=== PATIENT | female | born 1975 | race Caucasian/White ===

== ENCOUNTER 2017-10-24 08:23 | Emergency (ER) | payer SELFPAY ==
[~2017-10-24 08:23] MED LIST: LAMI25TA3 PO; METH10TA PO; OXYC30TA PO; SULF1TAB47 PO; XANA2TAB2 PO
[2017-10-24 08:32] VITALS: BP 130/81; PULSE 87; RESP 18; TEMP 98.3; O2SAT 98
== END 2017-10-24 10:45 | disposition left against medical advice (07) ==
LOC: NED 08:23
DX: N93.9 Abnormal uterine and vaginal bleeding, unspecified (principal); Z53.21 Procedure and treatment not carried out due to patient leaving prior to being seen by health care provider
CPT/HCPCS: 84703; 99281